=== PATIENT | female | born 1960 | race African-American/Black ===

== ENCOUNTER 2020-10-27 09:15 | Inpatient (IN) | payer MEDICAID ==
[~2020-10-27] VITALS: Ht 152.4 cm; Wt 78.0 kg
[2020-10-27 09:30] VITALS: BP 135/84
--- NOTE | 2020-10-27 09:32 | NUR ---
pt arrives to ER with complaints of blurred vision and left arm discomfort starting Sunday. pt denies history of TIA or stroke in the past but states she is concerned she is having TIA or stroke now starting 2 days ago. pt is AAOX4. Pt states history of HTN. pt is describing pain as a discomfort in left arm.
--- NOTE | 2020-10-27 09:35 | Emergency Room Report ---
History of Present Illness General Chief Complaint: Headache Source: Patient Present Illness HPI Patient is a 60-year-old female presents for increased right-sided weakness and numbness. Associated blurred vision. States that she had prior history of hypertension. Thinks that she may have had a transient ischemic attack. Had been taking carvedilol as well as amlodipine. Reports taking aspirin. Onset of symptoms on Sunday. 2 days prior to arrival reports having headache beginning yesterday at 8 PM. Patient denies any fever or neck stiffness. Prior history of partial thyroidectomy. 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 COVID-19 Screening: Negative COVID-19 Nursing Documentation-H Hx Cardiac Problems: No Hx Hypertension: Yes Hx Pacemaker: No Hx COPD: No Hx Diabetes: No Hx Cancer: No Hx Gastrointestinal Problems: No Hx Dialysis: No History Of Psychiatric Problem: No Hx Neurological Problems: No Hx Cerebrovascular Accident: No Hx Seizures: No Physical Exam Vital Signs Date Time Temp Pulse Resp B/P (MAP) Pulse Ox O2 Delivery O2 Flow Rate FiO2 10/27/20 09:25 98.1 100 18 135/84 (101) 96 Room Air Sp02 EP Interpretation: reviewed, normal General Appearance: normal inspection, well appearing, no apparent distress, alert, GCS 15 Head: atraumatic ENT: normal ENT inspection, hearing grossly normal, normal voice Neck: normal inspection, full range of motion, supple, no bony tend Respiratory: normal inspection, lungs clear, normal breath sounds, no respiratory distress, no retraction, no wheezing Cardiovascular #1: regular rate, rhythm, no edema Gastrointestinal: normal inspection, normal bowel sounds, non tender, soft, no guarding, no hernia Genitourinary: no CVA tenderness Musculoskeletal: normal inspection, back normal, normal range of motion Neurologic: alert, motor strength/tone normal, professional builder III-XII nml as tested, oriented x3, responsive, speech normal, normal gait, normal inspection, sensory deficit - Paresthesias to the right upper extremity and right lower extremity, no focal defects Psychiatric: normal inspection, judgement/insight normal, mood/affect normal Medical Decision Making Diagnostic Impression: Primary Impression: Headache Additional Impression: Multiple lacunar infarcts ER Course Patient presents for increased headache and leg weakness. Differential diagnosis include was not limited to CVA, transient ischemic attack, hypoglycemia, intracranial hemorrhage among others. Because of complexity of patient's case laboratory tests and imaging studies were ordered. His la boratory testing had adequate hemoglobin as well as adequate blood sugar as well as normal blood counts. Patient was given aspirin after imaging studies. Patient was ambulatory without assistance and had normal speech. Dr. Puentes was contacted for inpatient management. And agreed to admit the patient. Labs Test 10/27/20 09:40 10/27/20 10:00 White Blood Count 9.3 K/UL (4.8-10.8) Red Blood Count 4.79 M/UL (4.20-5.40) Hemoglobin 11.9 G/DL (12.0-16.0) Hematocrit 39.6 % (37.0-47.0) Mean Corpuscular Volume 83 FL (80-99) Mean Corpuscular Hemoglobin 24.9 PG (27.0-31.0) Mean Corpuscular Hemoglobin Concent 30.1 G/DL (32.0-36.0) Red Cell Distribution Width 15.1 % (11.6-14.8) Platelet Count 345 K/UL (150-450) Mean Platelet Volume 8.5 FL (6.5-10.1) Neutrophils (%) (Auto) 72.5 % (45.0-75.0) Lymphocytes (%) (Auto) 17.0 % (20.0-45.0) Monocytes (%) (Auto) 8.5 % (1.0-10.0) Eosinophils (%) (Auto) 0.6 % (0.0-3.0) Basophils (%) (Auto) 1.4 % (0.0-2.0) Prothrombin Time 12.0 SEC (9.30-11.50) Prothromb Time International Ratio 1.1 (0.9-1.1) Activated Partial Thromboplast Time 24 SEC (23-33) Sodium Level 143 MMOL/L (136-145) Potassium Level 4.2 MMOL/L (3.5-5.1) Chloride Level 104 MMOL/L (98-107) Carbon Dioxide Level 27 MMOL/L (21-32) Anion Gap 12 mmol/L (5-15) Blood Urea Nitrogen 12 mg/dL (7-18) Creatinine 0.9 MG/DL (0.55-1.30) Estimat Glomerular Filtration Rate > 60 mL/min (>60) Glucose Level 97 MG/DL (74-106) Calcium Level 9.6 MG/DL (8.5-10.1) Total Bilirubin 0.3 MG/DL (0.2-1.0) Aspartate Amino Transf (AST/SGOT) 26 U/L (15-37) Alanine Aminotransferase (ALT/SGPT) 37 U/L (12-78) Alkaline Phosphatase 120 U/L (46-116) Troponin I 0.000 ng/mL (0.000-0.056) Total Protein 7.8 G/DL (6.4-8.2) Albumin 4.0 G/DL (3.4-5.0) Globulin 3.8 g/dL Albumin/Globulin Ratio 1.1 (1.0-2.7) Triglycerides Level 63 MG/DL (30-150) Cholesterol Level 125 MG/DL (< 200) LDL Cholesterol 75 mg/dL (<100) HDL Cholesterol 34 MG/DL (40-60) Cholesterol/HDL Ratio 3.7 (3.3-4.4) Thyroid Stimulating Hormone (TSH) 2.434 uiU/mL (0.358-3.740) POC Whole Blood Glucose 106 MG/DL (74-106) Last Vital Signs Date Time Temp Pulse Resp B/P (MAP) Pulse Ox O2 Delivery O2 Flow Rate FiO2 10/27/20 09:30 98.1 18 135/84 96 Room Air 10/27/20 09:25 100 Status: unchanged Disposition: ADMITTED INPATIENT Condition: Stable Irving Norwood MD Oct 27, 2020 09:35
[2020-10-27] MEDS ORDERED: NEXIUM20 M1 ORAL (09:38)
[2020-10-27] MEDS ORDERED: FOLIC ACID1 MG ORAL (09:38)
[2020-10-27] MEDS ORDERED: VITAMIN D325 MC1 PO (09:38)
[2020-10-27] MEDS ORDERED: SPIRONOLACTONE100 MG ORAL (09:38)
[2020-10-27] MEDS ORDERED: ASPIRIN81 MG ORAL (09:38)
[2020-10-27] MEDS ORDERED: CARVEDILOL12.5 MG ORAL (09:38)
[2020-10-27 10:12] LABS: BASOPHILS % (AUTO) 1.4 % (0.0-2.0); EOSINOPHILS % (AUTO) 0.6 % (0.0-3.0); HEMATOCRIT 39.6 % (37.0-47.0); HEMOGLOBIN 11.9 G/DL (12.0-16.0); MEAN CORPUSCULAR VOLUME 83 FL (80-99); MONOCYTES % (AUTO) 8.5 % (1.0-10.0); NEUTROPHILS % (AUTO) 72.5 % (45.0-75.0); PLATELET COUNT 345 K/UL (150-450); RED BLOOD COUNT 4.79 M/UL (4.20-5.40); RED CELL DISTRIBUTION WIDTH 15.1 % (11.6-14.8); WHITE BLOOD COUNT 9.3 K/UL (4.8-10.8)
[2020-10-27 10:22] LABS: INR 1.1 (0.9-1.1)
[2020-10-27 10:41] LABS: ANION GAP 12 mmol/L (5-15); BLOOD UREA NITROGEN 12 mg/dL (7-18); CALCIUM 9.6 MG/DL (8.5-10.1); CARBON DIOXIDE 27 MMOL/L (21-32); CHLORIDE 104 MMOL/L (98-107); CREATININE 0.9 MG/DL (0.55-1.30); POTASSIUM 4.2 MMOL/L (3.5-5.1); SODIUM 143 MMOL/L (136-145)
[2020-10-27 10:53] LABS: ALANINE AMINOTRANSFERASE 37 U/L (12-78); ALBUMIN/GLOBULIN RATIO 1.1 (1.0-2.7); ALKALINE PHOSPHATASE 120 U/L (46-116); ASPARTATE AMINO TRANSFERASE 26 U/L (15-37); BILIRUBIN,TOTAL 0.3 MG/DL (0.2-1.0); CHOLESTEROL 125 MG/DL (< 200); HDL CHOLESTEROL 34 MG/DL (40-60); TRIGLYCERIDES 63 MG/DL (30-150)
--- NOTE | 2020-10-27 11:23 | Diagnostic Imaging Report ---
Indications: Increasing right-sided weakness and numbness with blurred vision Technique: Spiral acquisitions obtained through the brain. Angled axial and coronal 5 x 5 mm slices were reconstructed. Total dose length product 965 mGycm. CTDI vol(s) 53 mGy. Dose reduction achieved using automated exposure control Comparison: None. Findings: No acute intracranial hemorrhage or edema, mass effect, nor midline shift. Old lacunar infarcts are seen in the bilateral periventricular deep white matter, right greater than left. Otherwise normal uk-white differentiation. There is an old deep white matter infarct in the high left posterior frontal deep white matter. Visualized orbits and sinuses are unremarkable. The mastoids are clear. Impression: Multiple old infarcts Negative for acute intracranial bleed or mass effect The CT scanner at [facility] is accredited by the [employer] and the scans are performed using protocols designed to limit radiation exposure to as low as reasonably achievable to attain images of sufficient resolution adequate for diagnostic evaluation.
[2020-10-27] MEDS ORDERED: Aspirin Baby 81mg ORAL ONE (12:00)
--- NOTE | 2020-10-27 12:15 | NUR ---
pt in NAD, updated on plan of care at this time.
--- NOTE | 2020-10-27 14:41 | NUR ---
report given to nurse in 2 east patient is to be transferd to room 214 -1 via [facility]
[2020-10-27 15:05] VITALS: BP 132/96
[2020-10-27 16:00] VITALS: BP 116/80
--- NOTE | 2020-10-27 16:00 | NUR ---
NURSE NOTES: Received report from LINNEA Byrne from ED. Pt transferred from ED to tele. color television console monitor applied. IV site in LAC 20G SL patent and intact. Denied pain. No signs of distress noted. Side railsx2 up for safety. Right wrist brace for carpal tunnel syndrome noted. Per patient, She went to [facility] last week for right hand weakness and MRI done at the hospital. Will contact Dr. Puentes for admission orders.
[2020-10-27] MEDS ORDERED: Dyna-Hex 2% Top Sol 2oz TOPIC PRN (16:15)
--- NOTE | 2020-10-27 17:52 | Consultation ---
History of Present Illness General Chief Complaint: Headache Present Illness Allergies: Coded Allergies: No Known Allergies (Unverified , 10/27/20) Medication History Scheduled Aspirin* (Aspirin*), 81 MG ORAL DAILY, (Reported) Carvedilol* (Carvedilol*), 12.5 MG ORAL EVERY 12 HOURS, (Reported) Cholecalciferol (Vitamin D3) (Vitamin D3*), 25 MCG PO DAILY, (Reported) Esomeprazole Magnesium (Nexium), 20 MG ORAL DAILY, (Reported) Folic Acid* (Folic Acid*), 1 MG ORAL DAILY, (Reported) Spironolactone* (Spironolactone*), 100 MG ORAL DAILY, (Reported) Patient History Healthcare decision maker N Resuscitation status Advanced Directive on File Physical Exam Last 24 Hour Vital Signs Date Time Temp Pulse Resp B/P (MAP) Pulse Ox O2 Delivery O2 Flow Rate FiO2 10/27/20 16:00 81 10/27/20 15:05 86 18 132/96 100 10/27/20 14:39 98.2 82 18 130/80 98 Room Air 10/27/20 12:14 81 18 100 10/27/20 09:30 98.1 18 135/84 96 Room Air 10/27/20 09:25 98.1 100 18 135/84 (101) 96 Room Air Laboratory Tests Test 10/27/20 09:40 10/27/20 10:00 White Blood Count 9.3 K/UL (4.8-10.8) Red Blood Count 4.79 M/UL (4.20-5.40) Hemoglobin 11.9 G/DL (12.0-16.0) L Hematocrit 39.6 % (37.0-47.0) Mean Corpuscular Volume 83 FL (80-99) Mean Corpuscular Hemoglobin 24.9 PG (27.0-31.0) L Mean Corpuscular Hemoglobin Concent 30.1 G/DL (32.0-36.0) L Red Cell Distribution Width 15.1 % (11.6-14.8) H Platelet Count 345 K/UL (150-450) Mean Platelet Volume 8.5 FL (6.5-10.1) Neutrophils (%) (Auto) 72.5 % (45.0-75.0) Lymphocytes (%) (Auto) 17.0 % (20.0-45.0) L Monocytes (%) (Auto) 8.5 % (1.0-10.0) Eosinophils (%) (Auto) 0.6 % (0.0-3.0) Basophils (%) (Auto) 1.4 % (0.0-2.0) Prothrombin Time 12.0 SEC (9.30-11.50) H Prothromb Time International Ratio 1.1 (0.9-1.1) Activated Partial Thromboplast Time 24 SEC (23-33) Sodium Level 143 MMOL/L (136-145) Potassium Level 4.2 MMOL/L (3.5-5.1) Chloride Level 104 MMOL/L (98-107) Carbon Dioxide Level 27 MMOL/L (21-32) Anion Gap 12 mmol/L (5-15) Blood Urea Nitrogen 12 mg/dL (7-18) Creatinine 0.9 MG/DL (0.55-1.30) Estimat Glomerular Filtration Rate > 60 mL/min (>60) Glucose Level 97 MG/DL (74-106) Calcium Level 9.6 MG/DL (8.5-10.1) Total Bilirubin 0.3 MG/DL (0.2-1.0) Aspartate Amino Transf (AST/SGOT) 26 U/L (15-37) Alanine Aminotransferase (ALT/SGPT) 37 U/L (12-78) Alkaline Phosphatase 120 U/L (46-116) H Troponin I 0.000 ng/mL (0.000-0.056) Total Protein 7.8 G/DL (6.4-8.2) Albumin 4.0 G/DL (3.4-5.0) Globulin 3.8 g/dL Albumin/Globulin Ratio 1.1 (1.0-2.7) Triglycerides Level 63 MG/DL (30-150) Cholesterol Level 125 MG/DL (< 200) LDL Cholesterol 75 mg/dL (<100) HDL Cholesterol 34 MG/DL (40-60) L Cholesterol/HDL Ratio 3.7 (3.3-4.4) Thyroid Stimulating Hormone (TSH) 2.434 uiU/mL (0.358-3.740) POC Whole Blood Glucose 106 MG/DL (74-106) Height (Feet): 5 Weight (Pounds): 172 Medications Current Medications Medications (Trade) Dose Ordered Sig/Casey Route PRN Reason Start Time Stop Time Status Last Admin Dose Admin Aspirin (ASA) 81 mg DAILY ORAL 10/28/20 09:00 12/12/20 08:59 Atorvastatin Calcium (Lipitor) 10 mg BEDTIME ORAL 10/27/20 21:00 01/25/21 20:59 Carvedilol (Coreg) 12.5 mg EVERY 12 HOURS ORAL 10/27/20 21:00 11/26/20 20:59 Chlorhexidine Gluconate (Darlene-Hex 2%) 1 applic PRN PRN TOPIC Radiology Procedure 10/27/20 16:15 01/25/21 16:14 Folic Acid (Folate) 1 mg DAILY ORAL 10/28/20 09:00 11/27/20 08:59 Pantoprazole (Protonix) 40 mg DAILY ORAL 10/28/20 09:00 11/27/20 08:59 Spironolactone (Aldactone) 100 mg DAILY ORAL 10/28/20 09:00 11/27/20 08:59 Brittany Puentes M.D. Oct 27, 2020 17:52
--- NOTE | 2020-10-27 18:02 | History & Physical ---
History of Present Illness General Reason for Hospitalization: Headache Present Illness HPI This is a 60-year-old AA female presents for increased bilateral upper extremity weakness, numbness, and swelling, which is now resolved and Associated blurred vision. States that she had prior history of hypertension, newly diagnosed with stroke last week states she was seen at [facility] Most likely Dr. Carroll's team, she was given crestor and asa since her last admission at [facility]. She also has hx of RA and is on Methotrexate. She complains of morning stiffness and swelling in her hands. She works as a caregiver. Her symptoms have now resolved. CT head revealed Multiple old infarcts, Negative for acute intracranial bleed or mass effect. We were consulted for weakness and ? TIA. PAST MEDICAL HISTORY: Stroke, HLD, hypertension, pre diabetes, RA, Carpel Tunnel PAST SURGICAL HISTORY: Thyroidectomy FAMILY HISTORY: Heart Attack SOCIAL HISTORY: Denies smoking tobacco, no alcohol and no drugs, has several grown children 5 or 6 and works as a caregiver. Allergies: Coded Allergies: No Known Allergies (Unverified , 10/27/20) COVID-19 Screening Contact w/high risk pt: No Experienced COVID-19 symptoms?: No Medication History Scheduled Aspirin* (Aspirin*), 81 MG ORAL DAILY, (Reported) Carvedilol* (Carvedilol*), 12.5 MG ORAL EVERY 12 HOURS, (Reported) Cholecalciferol (Vitamin D3) (Vitamin D3*), 25 MCG PO DAILY, (Reported) Esomeprazole Magnesium (Nexium), 20 MG ORAL DAILY, (Reported) Folic Acid* (Folic Acid*), 1 MG ORAL DAILY, (Reported) Spironolactone* (Spironolactone*), 100 MG ORAL DAILY, (Reported) Patient History Healthcare decision maker N Resuscitation status Advanced Directive on File Review of Systems Review of Symptoms General ROS: no weight loss or fever Psychological ROS: no depression or mood changes, no memory loss Ophthalmic ROS: no visual changes or eye irritation ENT ROS: no nasal congestion, hearing loss, dizziness Allergy and Immunology ROS: no allergic symptoms or urticaria Hematological and Lymphatic ROS: no swollen glands, unusual bleeding or bruising Endocrine ROS: no polyuria, polydipsia, weight changes, temperature intolerance Respiratory ROS: no cough, shortness of breath, or wheezing Cardiovascular ROS: no chest pain or dyspnea on exertion Gastrointestinal ROS: denies abdominal pain, bright red blood in stool. Musculoskeletal ROS: no myalgias or arthralgias Neurological ROS: no TIA or stroke symptoms Dermatological ROS: no new or changing skin lesions, rashes or pruritis Physical Exam Physical Exam General appearance: alert, cooperative, no distress, appears stated age Head: Normocephalic, without obvious abnormality, atraumatic Eyes: conjunctivae/corneas clear. PERRL, EOM's intact. Fundi benign Throat: Lips, mucosa, and tongue normal. Teeth and gums normal Neck: supple, symmetrical, trachea midline, no adenopathy, thyroid: not enlarged, symmetric, no tenderness/mass/nodules, no carotid bruit and no JVD Lungs: clear to auscultation bilaterally Heart: regular rate and rhythm, S1, S2 normal, no murmur, click, rub or gallop Abdomen: soft, non-tender. Bowel sounds normal. No masses, no organomegaly Extremities: extremities normal, atraumatic, no cyanosis or edema Pulses: 2+ and symmetric Skin: Skin color, texture, turgor normal. No rashes or lesions Neurologic: Grossly normal Last 24 Hour Vital Signs Date Time Temp Pulse Resp B/P (MAP) Pulse Ox O2 Delivery O2 Flow Rate FiO2 10/27/20 16:09 Room Air 10/27/20 16:00 81 10/27/20 15:05 86 18 132/96 100 10/27/20 14:39 98.2 82 18 130/80 98 Room Air 10/27/20 12:14 81 18 100 10/27/20 09:30 98.1 18 135/84 96 Room Air 10/27/20 09:25 98.1 100 18 135/84 (101) 96 Room Air Laboratory Tests Test 10/27/20 09:40 10/27/20 10:00 White Blood Count 9.3 K/UL (4.8-10.8) Red Blood Count 4.79 M/UL (4.20-5.40) Hemoglobin 11.9 G/DL (12.0-16.0) L Hematocrit 39.6 % (37.0-47.0) Mean Corpuscular Volume 83 FL (80-99) Mean Corpuscular Hemoglobin 24.9 PG (27.0-31.0) L Mean Corpuscular Hemoglobin Concent 30.1 G/DL (32.0-36.0) L Red Cell Distribution Width 15.1 % (11.6-14.8) H Platelet Count 345 K/UL (150-450) Mean Platelet Volume 8.5 FL (6.5-10.1) Neutrophils (%) (Auto) 72.5 % (45.0-75.0) Lymphocytes (%) (Auto) 17.0 % (20.0-45.0) L Monocytes (%) (Auto) 8.5 % (1.0-10.0) Eosinophils (%) (Auto) 0.6 % (0.0-3.0) Basophils (%) (Auto) 1.4 % (0.0-2.0) Prothrombin Time 12.0 SEC (9.30-11.50) H Prothromb Time International Ratio 1.1 (0.9-1.1) Activated Partial Thromboplast Time 24 SEC (23-33) Sodium Level 143 MMOL/L (136-145) Potassium Level 4.2 MMOL/L (3.5-5.1) Chloride Level 104 MMOL/L (98-107) Carbon Dioxide Level 27 MMOL/L (21-32) Anion Gap 12 mmol/L (5-15) Blood Urea Nitrogen 12 mg/dL (7-18) Creatinine 0.9 MG/DL (0.55-1.30) Estimat Glomerular Filtration Rate > 60 mL/min (>60) Glucose Level 97 MG/DL (74-106) Calcium Level 9.6 MG/DL (8.5-10.1) Total Bilirubin 0.3 MG/DL (0.2-1.0) Aspartate Amino Transf (AST/SGOT) 26 U/L (15-37) Alanine Aminotransferase (ALT/SGPT) 37 U/L (12-78) Alkaline Phosphatase 120 U/L (46-116) H Troponin I 0.000 ng/mL (0.000-0.056) Total Protein 7.8 G/DL (6.4-8.2) Albumin 4.0 G/DL (3.4-5.0) Globulin 3.8 g/dL Albumin/Globulin Ratio 1.1 (1.0-2.7) Triglycerides Level 63 MG/DL (30-150) Cholesterol Level 125 MG/DL (< 200) LDL Cholesterol 75 mg/dL (<100) HDL Cholesterol 34 MG/DL (40-60) L Cholesterol/HDL Ratio 3.7 (3.3-4.4) Thyroid Stimulating Hormone (TSH) 2.434 uiU/mL (0.358-3.740) POC Whole Blood Glucose 106 MG/DL (74-106) Height (Feet): 5 Height (Inches): 0.00 Weight (Pounds): 172 Medications Current Medications Medications (Trade) Dose Ordered Sig/Casey Route PRN Reason Start Time Stop Time Status Last Admin Dose Admin Aspirin (ASA) 81 mg DAILY ORAL 10/28/20 09:00 12/12/20 08:59 Atorvastatin Calcium (Lipitor) 10 mg BEDTIME ORAL 10/27/20 21:00 01/25/21 20:59 Carvedilol (Coreg) 12.5 mg EVERY 12 HOURS ORAL 10/27/20 21:00 11/26/20 20:59 Chlorhexidine Gluconate (Darlene-Hex 2%) 1 applic PRN PRN TOPIC Radiology Procedure 10/27/20 16:15 01/25/21 16:14 Folic Acid (Folate) 1 mg DAILY ORAL 10/28/20 09:00 11/27/20 08:59 Pantoprazole (Protonix) 40 mg DAILY ORAL 10/28/20 09:00 11/27/20 08:59 Spironolactone (Aldactone) 100 mg DAILY ORAL 10/28/20 09:00 11/27/20 08:59 Assessment/Plan Diagnosis [place] I: # Recent Stroke #HLD # hypertension #pre diabetes # RA #Carpel Tunnel - admit to tele - brain MRI - neuro eval - echo - carotid US - asa - statin - PT - monitor labs [facility] Hospital declaration I spent 70 minutes on this patient's case, and 36 minutes was dedicated to counseling and/or care coordination. MIPS ([employer]-based Incentive Payment System) Applicable CPT: 77234, 82636 CHECK ALL THAT ARE MET: Measure #5 (CHF): All ages. Prescribe JEN/ARB upon discharge for patients with left ventricular systolic dysfunction. If not, the reason is clearly documented in the medical chart. Measure #8 (CHF): All ages. Prescribe a beta enma upon discharge for patients with left ventricular systolic dysfunction. If not, the reason is clearly documented in the medical chart. Measure #47 Advance care plan or surrogate decision maker documented in the medical record. Measure #130 The provider has documented, updated, or reviewed the patients current medication list and has documented it in the patients note. Measure #374 (All): Send report to referring provider. Measure #407(Sepsis due to MSSA bacteremia): Age 18+ Patient treated with a beta-lactam antibiotic (Nafcillin, Oxacillin or Cefazolin) as definitive therapy. MEDICAL COMPLEXITY High complexity medical decision making (need 2/3 categories) Problem - need 4 points Acute/new problem with new plan for workup (4 points, 1 max) Acute/new problem without additional workup (3 points, 1 max) Unstable chronic problem actively being managed (2 point each, 2 max) Stable chronic problem actively being managed (1 point each, 2 max) Self-limited/transient process (constipation, muscle ache, etc) (1 point each, 2 max) Data - need 4 points Reviewed labs/imaging studies (1 points, 2 max) Independent review of imaging (EKG, xrays, etc) (2 points, 2 max) Discussed case with consult/other MD/RN (2 points, 2 max) High Risk - qualify if have one of the following: Severe exacerbation of acute problem, acute mental status change, IV narco tics, monitoring drug levels (vancomycin, INR, tacrolimus etc) Brittany Puentes M.D. Oct 27, 2020 18:01
--- NOTE | 2020-10-27 19:34 | NUR ---
NURSE HAND-OFF REPORT: Important Events on Shift: admission Patient Status: stable Diet: cardiac Pending Orders: n/a Pending Results/Labs: 2D echo Pending MD notification:[place] [facility] [place] Vital Signs: Temperature 97.7 , Pulse 84 , B/P 116 /80 , Respiratory Rate 18 , O2 SAT 100 , Room Air, O2 Flow Rate . Vital Sign Comment: stable EKG Rhythm: Sinus Rhythm Rhythm change?: N MD Notified?: - MD Response: Latest Carmichael Fall Score: 15 Fall Risk: Low Risk Safety Measures: Call light Within Reach, Bed Alarm , Side Rails Side Rails x2, Bed position Low and Locked. Fall Precautions: Patient Fall Education Report given to LINNEA Fitzpatrick.
[2020-10-27 20:00] VITALS: BP 119/66
[2020-10-27] MEDS ORDERED: Atorvastatin 20mg tab ORAL SCH (21:00)
[2020-10-27] MEDS: Carvedilol 12.5mg tab ORAL SCH (21:28)
--- NOTE | 2020-10-27 22:06 | Consultation ---
History of Present Illness General Date patient seen: Oct 27, 2020 Reason for Hospitalization: Headache Present Illness HPI Patient is a 60-year-old female presents for increased right-sided weakness and numbness. Associated blurred vision. States that she had prior history of hype rtension. Thinks that she may have had a transient ischemic attack. Had been taking carvedilol as well as amlodipine. Reports taking aspirin. Onset of symptoms on Sunday. 2 days prior to arrival reports having headache beginning yesterday at 8 PM. Patient denies any fever or neck stiffness. Prior history of partial thyroidectomy. On admission noted to have elevated alkaline phosphate surgical divine assist with care patient seen, patient by, chart reviewed. No nausea vomiting fever chills. Was not down for significant time. Allergies: Coded Allergies: No Known Allergies (Unverified , 10/27/20) COVID-19 Screening Contact w/high risk pt: No Experienced COVID-19 symptoms?: No Medication History Scheduled Aspirin* (Aspirin*), 81 MG ORAL DAILY, (Reported) Carvedilol* (Carvedilol*), 12.5 MG ORAL EVERY 12 HOURS, (Reported) Cholecalciferol (Vitamin D3) (Vitamin D3*), 25 MCG PO DAILY, (Reported) Esomeprazole Magnesium (Nexium), 20 MG ORAL DAILY, (Reported) Folic Acid* (Folic Acid*), 1 MG ORAL DAILY, (Reported) Spironolactone* (Spironolactone*), 100 MG ORAL DAILY, (Reported) Patient History History Provided By: Patient, Medical Record, PMD Healthcare decision maker N Resuscitation status Advanced Directive on File Past Medical/Surgical History Past Medical/Surgical History: (1) Headache (2) Multiple lacunar infarcts (3) TIA (transient ischemic attack) Review of Systems Review of Symptoms General ROS: no weight loss or fever Psychological ROS: no depression or mood changes, no memory loss Ophthalmic ROS: no visual changes or eye irritation ENT ROS: no nasal congestion, hearing loss, dizziness Allergy and Immunology ROS: no allergic symptoms or urticaria Hematological and Lymphatic ROS: no swollen glands, unusual bleeding or bruising Endocrine ROS: no polyuria, polydipsia, weight changes, temperature intolerance Respiratory ROS: no cough, shortness of breath, or wheezing Cardiovascular ROS: no chest pain or dyspnea on exertion Gastrointestinal ROS: denies abdominal pain, bright red blood in stool. Musculoskeletal ROS: no myalgias or arthralgias Neurological ROS: no TIA or stroke symptoms Dermatological ROS: no new or changing skin lesions, rashes or pruritis Physical Exam Physical Exam General appearance: alert, cooperative, no distress, appears stated age Head: Normocephalic, without obvious abnormality, atraumatic Eyes: conjunctivae/corneas clear. PERRL, EOM's intact. Fundi benign Throat: Lips, mucosa, and tongue normal. Teeth and gums normal Neck: supple, symmetrical, trachea midline, no adenopathy, thyroid: not enlarged, symmetric, no tenderness/mass/nodules, no carotid bruit and no JVD Lungs: clear to auscultation bilaterally Heart: regular rate and rhythm, S1, S2 normal, no murmur, click, rub or gallop Abdomen: soft, non-tender. Bowel sounds normal. No masses, no organomegaly Extremities: extremities normal, atraumatic, no cyanosis or edema Pulses: 2+ and symmetric Skin: Skin color, texture, turgor normal. No rashes or lesions Neurologic: Grossly normal Last 24 Hour Vital Signs Date Time Temp Pulse Resp B/P (MAP) Pulse Ox O2 Delivery O2 Flow Rate FiO2 10/27/20 21:28 77 119/66 10/27/20 20:00 97.7 77 18 119/66 (83) 98 10/27/20 16:09 Room Air 10/27/20 16:09 Room Air 10/27/20 16:00 81 10/27/20 16:00 97.7 84 18 116/80 (92) 100 10/27/20 15:05 86 18 132/96 100 10/27/20 14:39 98.2 82 18 130/80 98 Room Air 10/27/20 12:14 81 18 100 10/27/20 09:30 98.1 18 135/84 96 Room Air 10/27/20 09:25 98.1 100 18 135/84 (101) 96 Room Air Laboratory Tests Test 10/27/20 09:40 10/27/20 10:00 White Blood Count 9.3 K/UL (4.8-10.8) Red Blood Count 4.79 M/UL (4.20-5.40) Hemoglobin 11.9 G/DL (12.0-16.0) L Hematocrit 39.6 % (37.0-47.0) Mean Corpuscular Volume 83 FL (80-99) Mean Corpuscular Hemoglobin 24.9 PG (27.0-31.0) L Mean Corpuscular Hemoglobin Concent 30.1 G/DL (32.0-36.0) L Red Cell Distribution Width 15.1 % (11.6-14.8) H Platelet Count 345 K/UL (150-450) Mean Platelet Volume 8.5 FL (6.5-10.1) Neutrophils (%) (Auto) 72.5 % (45.0-75.0) Lymphocytes (%) (Auto) 17.0 % (20.0-45.0) L Monocytes (%) (Auto) 8.5 % (1.0-10.0) Eosinophils (%) (Auto) 0.6 % (0.0-3.0) Basophils (%) (Auto) 1.4 % (0.0-2.0) Prothrombin Time 12.0 SEC (9.30-11.50) H Prothromb Time International Ratio 1.1 (0.9-1.1) Activated Partial Thromboplast Time 24 SEC (23-33) Sodium Level 143 MMOL/L (136-145) Potassium Level 4.2 MMOL/L (3.5-5.1) Chloride Level 104 MMOL/L (98-107) Carbon Dioxide Level 27 MMOL/L (21-32) Anion Gap 12 mmol/L (5-15) Blood Urea Nitrogen 12 mg/dL (7-18) Creatinine 0.9 MG/DL (0.55-1.30) Estimat Glomerular Filtration Rate > 60 mL/min (>60) Glucose Level 97 MG/DL (74-106) Calcium Level 9.6 MG/DL (8.5-10.1) Total Bilirubin 0.3 MG/DL (0.2-1.0) Aspartate Amino Transf (AST/SGOT) 26 U/L (15-37) Alanine Aminotransferase (ALT/SGPT) 37 U/L (12-78) Alkaline Phosphatase 120 U/L (46-116) H Troponin I 0.000 ng/mL (0.000-0.056) Total Protein 7.8 G/DL (6.4-8.2) Albumin 4.0 G/DL (3.4-5.0) Globulin 3.8 g/dL Albumin/Globulin Ratio 1.1 (1.0-2.7) Triglycerides Level 63 MG/DL (30-150) Cholesterol Level 125 MG/DL (< 200) LDL Cholesterol 75 mg/dL (<100) HDL Cholesterol 34 MG/DL (40-60) L Cholesterol/HDL Ratio 3.7 (3.3-4.4) Thyroid Stimulating Hormone (TSH) 2.434 uiU/mL (0.358-3.740) POC Whole Blood Glucose 106 MG/DL (74-106) Height (Feet): 5 Height (Inches): 0.00 Weight (Pounds): 172 Medications Current Medications Medications (Trade) Dose Ordered Sig/Casey Route PRN Reason Start Time Stop Time Status Last Admin Dose Admin Aspirin (ASA) 81 mg DAILY ORAL 10/28/20 09:00 12/12/20 08:59 Atorvastatin Calcium (Lipitor) 10 mg BEDTIME ORAL 10/27/20 21:00 01/25/21 20:59 10/27/20 21:29 Carvedilol (Coreg) 12.5 mg EVERY 12 HOURS ORAL 10/27/20 21:00 11/26/20 20:59 10/27/20 21:28 Chlorhexidine Gluconate (Darlene-Hex 2%) 1 applic PRN PRN TOPIC Radiology Procedure 10/27/20 16:15 01/25/21 16:14 Folic Acid (Folate) 1 mg DAILY ORAL 10/28/20 09:00 11/27/20 08:59 Pantoprazole (Protonix) 40 mg DAILY ORAL 10/28/20 09:00 11/27/20 08:59 Spironolactone (Aldactone) 100 mg DAILY ORAL 10/28/20 09:00 11/27/20 08:59 Assessment/Plan Problem List: (1) TIA (transient ischemic attack) ICD Codes: G45.9 - Transient cerebral ischemic attack, unspecified SNOMED: 698025343 (2) Headache Assessment & Plan: as per neuro ICD Codes: R51.9 - Headache, unspecified SNOMED: 49150776 (3) Multiple lacunar infarcts ICD Codes: I63.81 - Other cerebral infarction due to occlusion or stenosis of small artery SNOMED: 603484920 (4) Elevated alkaline phosphatase level Assessment & Plan: Possible TIA not down LOC no pending neuro input MRI CT noted alkaline phosphatase elevation unlikely liver related unlikely from being down no acute intervention necessary at this time okay for diet okay for activity as tolerated once gait ensured. PT OT trend labs we will follow the recommendations hold on further imaging unlikely biliary thank you ICD Codes: R74.8 - Abnormal levels of other serum enzymes SNOMED: 309809092 Josafat Chu Oct 27, 2020 22:06
[2020-10-28] VITALS: BP 100/50
[2020-10-28 04:00] VITALS: BP 119/66
--- NOTE | 2020-10-28 07:10 | NUR ---
NURSE NOTES: received patient report from stormy hernandez rn. patient is on bed awake, not in acute distress. no acute events reported last time. scds for dvt prophylaxis, ambulatory, steady. NSR on the monitor. bed is low and locked for safety. will follow plan of care.
[2020-10-28 07:19] LABS: EOSINOPHILS % (AUTO) 1.9 % (0.0-3.0); HEMATOCRIT 34.6 % (37.0-47.0); HEMOGLOBIN 10.8 G/DL (12.0-16.0); LYMPHOCYTES % (AUTO) 29.4 % (20.0-45.0); MEAN CORPUSCULAR VOLUME 82 FL (80-99); MONOCYTES % (AUTO) 9.5 % (1.0-10.0); NEUTROPHILS % (AUTO) 58.2 % (45.0-75.0); PLATELET COUNT 319 K/UL (150-450); RED CELL DISTRIBUTION WIDTH 15.2 % (11.6-14.8); WHITE BLOOD COUNT 7.8 K/UL (4.8-10.8)
[2020-10-28 07:41] LABS: AMYLASE 55 U/L (25-115)
[2020-10-28 07:50] LABS: ANION GAP 9 mmol/L (5-15); BLOOD UREA NITROGEN 18 mg/dL (7-18); CARBON DIOXIDE 28 MMOL/L (21-32); CHLORIDE 104 MMOL/L (98-107); CHOLESTEROL 100 MG/DL (< 200); CREATININE 0.9 MG/DL (0.55-1.30); HDL CHOLESTEROL 28 MG/DL (40-60); PHOSPHORUS 4.1 MG/DL (2.5-4.9); POTASSIUM 4.1 MMOL/L (3.5-5.1); SODIUM 141 MMOL/L (136-145); TRIGLYCERIDES 51 MG/DL (30-150)
[2020-10-28 08:00] VITALS: BP 128/86
[2020-10-28] MEDS: Spironolactone 25mg tab ORAL SCH (08:26)
[2020-10-28] MEDS: Aspirin Baby 81mg ORAL SCH (08:26)
[2020-10-28] MEDS: Carvedilol 12.5mg tab ORAL SCH ×2 (08:26→21:53)
--- NOTE | 2020-10-28 10:07 | Consultation ---
Consult Note Consult Note NEUROLOGY CONSULTATION DATE OF CONSULTATION: 10/28/2020 AC PINA: Covering Dr. Norton REASON FOR REFERRAL: Weakness, history of stroke HPI: This is a 60-year-old AA female presents for increased bilateral upper extremity weakness, numbness, and swelling, which is now resolved and Associated blurred vision. States that she had prior history of hypertension, newly diagnosed with stroke last week states she was seen at [facility] Most likely Dr. Carroll's team, she was given crestor and asa since her last admission at [facility]. She also has hx of RA and is on Methotrexate. She complains of morning stiffness and swelling in her hands. She works as a caregiver. Her symptoms have now resolved. CT head revealed Multiple old infarcts, Negative for acute intracranial bleed or mass effect. We were consulted for weakness and ? TIA. PAST MEDICAL HISTORY: Stroke, HLD, hypertension, pre diabetes, RA, Carpel Tunnel PAST SURGICAL HISTORY: Thyroidectomy FAMILY HISTORY: Heart Attack SOCIAL HISTORY: Denies smoking tobacco, no alcohol and no drugs, has several jai wn children 5 or 6 and works as a caregiver. ROS 14 point system done Physical Exam General: Resting in bed. Awake, Alert and Oriented x4 Neuro: has insight to situation, comprehension intact, language parameters intact. Cranial nerves II-XII are tested. PERRLA, no nystagmus with gaze. No facial asymmetry no facial droop. Tongue is midline Hearing intact. Motor: No involuntary movement Right upper extremity strength 3/5 Left upper extremity strength 4/5, Bilateral lower extremity strength 4/5 Gait not tested at this time. Corrdination intact and Sensation intact to light touch and pinprick throughout and equal bilaterally in all extremities. Coordination normal. Lab Reviewed IMAGING: Reviewed CT Head Multiple old infarcts, Negative for acute intracranial bleed or mass effect. Assessment and Rec's: 1. History of Stroke --> no deficits exam is non focal. will review records from [facility] and update with further rec's --> continue statin and asa 2. Doubt TIA --> more weakness and edema complaint by patient rather than numbness --> CT head shows old multiple infarcts 3. Hypertension --> continue htn meds 4. pre diabetes 5. RA 6. Carpel Tunnel Thank You for allowing us to participate in patient's care, plan of care was discussed with Dr. Dexter Carroll. -- Yessi Mahmood NP Oct 28, 2020 10:07
--- NOTE | 2020-10-28 10:10 | NUR ---
PT EVALUATION NOTE Patient seen for initial evaluation and treatment initiated. Patient presents with impaired balance and coordination which affects patient's ability to perform mobility skills safely. Patient requires supevision for transfers and SBA for ambulation without assistive device. Patient c/o min dizziness and blurred vision while ambulating, slightly unsteady however no loss of balance. Patient demonstrates impaired coordination RUE and reports RUE and RLE feels "heavy. Patient will benefit from skilled inpatient PT intervention to improve balance, level of functional mobility and safety. Recommend discharge home once medically cleared by MD with outpatient PT and OT follow-up. No DME needs identified at this time. Addendum: 10/28/20 at 1237 by REBA ESTRADA PT Amended: Links added.
[2020-10-28 12:00] VITALS: BP 118/67
--- NOTE | 2020-10-28 12:08 | NUR ---
INSURANCE [employer]INICALS FAXED TO [facility] #[phone] fax# [phone]
--- NOTE | 2020-10-28 12:14 | Internal Med Progress Note ---
Subjective Physician Name Brittany Puentes Attending Physician Brittany Puentes M.D. Current Medications Medications (Trade) Dose Ordered Sig/Casey Route PRN Reason Start Time Stop Time Status Last Admin Dose Admin Aspirin (ASA) 81 mg DAILY ORAL 10/28/20 09:00 12/12/20 08:59 10/28/20 08:26 Atorvastatin Calcium (Lipitor) 10 mg BEDTIME ORAL 10/27/20 21:00 01/25/21 20:59 10/27/20 21:29 Carvedilol (Coreg) 12.5 mg EVERY 12 HOURS ORAL 10/27/20 21:00 11/26/20 20:59 10/28/20 08:26 Chlorhexidine Gluconate (Darlene-Hex 2%) 1 applic PRN PRN TOPIC Radiology Procedure 10/27/20 16:15 01/25/21 16:14 Folic Acid (Folate) 1 mg DAILY ORAL 10/28/20 09:00 11/27/20 08:59 10/28/20 08:26 Pantoprazole (Protonix) 40 mg DAILY ORAL 10/28/20 09:00 11/27/20 08:59 10/28/20 08:25 Spironolactone (Aldactone) 100 mg DAILY ORAL 10/28/20 09:00 11/27/20 08:59 10/28/20 08:26 Allergies: Coded Allergies: No Known Allergies (Unverified , 10/27/20) ROS Limited/Unobtainable: No Constitutional: Reports: weakness HEENT: Denies: no symptoms, eye pain, blurred vision, tearing, double vision, ear pain, ear discharge, nose pain, nose congestion, throat pain, throat swelling, mouth pain, mouth swelling, other Respiratory: Denies: no symptoms, cough, orthopnea, shortness of breath, SOB with excertion, SOB at rest, sputum, stridor, wheezing, other Gastrointestinal/Abdominal: Denies: no symptoms, abdomen distended, abdominal pain, black stools, tarry stools, blood in stool, constipated, diarrhea, difficulty swallowing, nausea, poor appetite, poor fluid intake, rectal bleeding, vomiting, other Genitourinary: Denies: no symptoms, burning, discharge, frequency, flank pain, hematuria, incontinence, pain, urgency, other Neurologic/Psychiatric: Denies: no symptoms, anxiety, depressed, emotional problems, headache, numbness, paresthesia, pre-existing deficit, seizure, tingling, tremors, weakness, other Objective Last Vital Signs Date Time Temp Pulse Resp B/P (MAP) Pulse Ox O2 Delivery O2 Flow Rate FiO2 10/28/20 12:00 97.7 70 17 118/67 (84) 100 10/28/20 09:00 Room Air General Appearance: no apparent distress, alert EENT: PERRL/EOMI, normal ENT inspection Neck: non-tender, normal alignment Cardiovascular: normal peripheral pulses, normal rate, regular rhythm Respiratory/Chest: chest wall non-tender, lungs clear Abdomen: normal bowel sounds, non tender Neurologic: alert, oriented x 3 Laboratory Tests Test 10/28/20 06:40 White Blood Count 7.8 K/UL (4.8-10.8) Red Blood Count 4.20 M/UL (4.20-5.40) Hemoglobin 10.8 G/DL (12.0-16.0) L Hematocrit 34.6 % (37.0-47.0) L Mean Corpuscular Volume 82 FL (80-99) Mean Corpuscular Hemoglobin 25.7 PG (27.0-31.0) L Mean Corpuscular Hemoglobin Concent 31.3 G/DL (32.0-36.0) L Red Cell Distribution Width 15.2 % (11.6-14.8) H Platelet Count 319 K/UL (150-450) Mean Platelet Volume 8.5 FL (6.5-10.1) Neutrophils (%) (Auto) 58.2 % (45.0-75.0) Lymphocytes (%) (Auto) 29.4 % (20.0-45.0) Monocytes (%) (Auto) 9.5 % (1.0-10.0) Eosinophils (%) (Auto) 1.9 % (0.0-3.0) Basophils (%) (Auto) 1.0 % (0.0-2.0) Sodium Level 141 MMOL/L (136-145) Potassium Level 4.1 MMOL/L (3.5-5.1) Chloride Level 104 MMOL/L (98-107) Carbon Dioxide Level 28 MMOL/L (21-32) Anion Gap 9 mmol/L (5-15) Blood Urea Nitrogen 18 mg/dL (7-18) Creatinine 0.9 MG/DL (0.55-1.30) Estimat Glomerular Filtration Rate > 60 mL/min (>60) Glucose Level 100 MG/DL (74-106) Hemoglobin A1c 6.1 % (4.3-6.0) H Calcium Level 9.0 MG/DL (8.5-10.1) Phosphorus Level 4.1 MG/DL (2.5-4.9) Magnesium Level 1.8 MG/DL (1.8-2.4) Triglycerides Level 51 MG/DL (30-150) Cholesterol Level 100 MG/DL (< 200) LDL Cholesterol 62 mg/dL (<100) HDL Cholesterol 28 MG/DL (40-60) L Cholesterol/HDL Ratio 3.6 (3.3-4.4) Amylase Level 55 U/L (25-115) Lipase 156 U/L (73-393) Thyroid Stimulating Hormone (TSH) 1.641 uiU/mL (0.358-3.740) Intake and Output 10/27/20 10/28/20 19:00 07:00 Intake Total 240 ml 300 ml Balance 240 ml 300 ml Intake Oral 240 ml 300 ml # Voids 1 1 # Bowel Movements 1 Assessment/Plan Assessment/Plan # Recent Stroke #HLD # hypertension #pre diabetes # RA #Carpel Tunnel - admit to tele - brain MRI - neuro eval - echo - carotid US - asa - statin - PT - monitor labs Brittany Puentes M.D. Oct 28, 2020 12:14
--- NOTE | 2020-10-28 12:35 | Surgery Progress Note ---
Surgery Progress Note Subjective Symptoms: improved, tolerating diet Objective Last 24 Hour Vital Signs Date Time Temp Pulse Resp B/P (MAP) Pulse Ox O2 Delivery O2 Flow Rate FiO2 10/28/20 12:00 97.7 70 17 118/67 (84) 100 10/28/20 11:40 66 10/28/20 09:00 Room Air 10/28/20 08:26 78 128/86 10/28/20 08:00 96.6 78 18 128/86 (100) 97 10/28/20 08:00 76 10/28/20 04:00 97.5 74 20 119/66 (83) 98 10/28/20 04:00 76 10/28/20 00:00 75 10/28/20 00:00 97.7 77 20 100/50 (67) 98 10/27/20 21:28 77 119/66 10/27/20 21:00 Room Air 10/27/20 20:00 97.7 77 18 119/66 (83) 98 10/27/20 16:09 Room Air 10/27/20 16:09 Room Air 10/27/20 16:00 81 10/27/20 16:00 97.7 84 18 116/80 (92) 100 10/27/20 15:05 86 18 132/96 100 10/27/20 14:39 98.2 82 18 130/80 98 Room Air I&O Intake and Output 10/27/20 10/28/20 19:00 07:00 Intake Total 240 ml 300 ml Balance 240 ml 300 ml Intake Oral 240 ml 300 ml # Voids 1 1 # Bowel Movements 1 Cardiovascular: RSR Respiratory: decreased breath sounds Abdomen: soft, flat, non-tender, present bowel sounds, non-distended Extremities: no edema, no tenderness, no cyanosis Laboratory Tests Test 10/28/20 06:40 White Blood Count 7.8 K/UL (4.8-10.8) Red Blood Count 4.20 M/UL (4.20-5.40) Hemoglobin 10.8 G/DL (12.0-16.0) L Hematocrit 34.6 % (37.0-47.0) L Mean Corpuscular Volume 82 FL (80-99) Mean Corpuscular Hemoglobin 25.7 PG (27.0-31.0) L Mean Corpuscular Hemoglobin Concent 31.3 G/DL (32.0-36.0) L Red Cell Distribution Width 15.2 % (11.6-14.8) H Platelet Count 319 K/UL (150-450) Mean Platelet Volume 8.5 FL (6.5-10.1) Neutrophils (%) (Auto) 58.2 % (45.0-75.0) Lymphocytes (%) (Auto) 29.4 % (20.0-45.0) Monocytes (%) (Auto) 9.5 % (1.0-10.0) Eosinophils (%) (Auto) 1.9 % (0.0-3.0) Basophils (%) (Auto) 1.0 % (0.0-2.0) Sodium Level 141 MMOL/L (136-145) Potassium Level 4.1 MMOL/L (3.5-5.1) Chloride Level 104 MMOL/L (98-107) Carbon Dioxide Level 28 MMOL/L (21-32) Anion Gap 9 mmol/L (5-15) Blood Urea Nitrogen 18 mg/dL (7-18) Creatinine 0.9 MG/DL (0.55-1.30) Estimat Glomerular Filtration Rate > 60 mL/min (>60) Glucose Level 100 MG/DL (74-106) Hemoglobin A1c 6.1 % (4.3-6.0) H Calcium Level 9.0 MG/DL (8.5-10.1) Phosphorus Level 4.1 MG/DL (2.5-4.9) Magnesium Level 1.8 MG/DL (1.8-2.4) Triglycerides Level 51 MG/DL (30-150) Cholesterol Level 100 MG/DL (< 200) LDL Cholesterol 62 mg/dL (<100) HDL Cholesterol 28 MG/DL (40-60) L Cholesterol/HDL Ratio 3.6 (3.3-4.4) Amylase Level 55 U/L (25-115) Lipase 156 U/L (73-393) Thyroid Stimulating Hormone (TSH) 1.641 uiU/mL (0.358-3.740) Plan Problems: (1) TIA (transient ischemic attack) (2) Headache Assessment & Plan: as per neuro (3) Multiple lacunar infarcts (4) Elevated alkaline phosphatase level Assessment & Plan: Possible TIA not down LOC no pending neuro input MRI CT noted alkaline phosphatase elevation unlikely liver related unlikely from being down no acute intervention necessary at this time okay for diet okay for activity as tolerated once gait ensured. PT OT trend labs we will follow the recommendations hold on further imaging unlikely biliary thank you labs improved diet as tolerated neuro input Josafat Chu Oct 28, 2020 12:35
[2020-10-28] MEDS ORDERED: Albuterol/Ipratropium 3ml neb HHN PRN (13:30)
[2020-10-28 16:00] VITALS: BP 117/67
--- NOTE | 2020-10-28 16:22 | Cardiac Electrophysiology PN ---
Subjective Subjective [id number] Objective Last 24 Hour Vital Signs Date Time Temp Pulse Resp B/P (MAP) Pulse Ox O2 Delivery O2 Flow Rate FiO2 10/28/20 12:00 97.7 70 17 118/67 (84) 100 10/28/20 11:40 66 10/28/20 09:00 Room Air 10/28/20 08:26 78 128/86 10/28/20 08:00 96.6 78 18 128/86 (100) 97 10/28/20 08:00 76 10/28/20 04:00 97.5 74 20 119/66 (83) 98 10/28/20 04:00 76 10/28/20 00:00 75 10/28/20 00:00 97.7 77 20 100/50 (67) 98 10/27/20 21:28 77 119/66 10/27/20 21:00 Room Air 10/27/20 20:00 97.7 77 18 119/66 (83) 98 Intake and Output 10/27/20 10/28/20 19:00 07:00 Intake Total 240 ml 300 ml Balance 240 ml 300 ml Intake Oral 240 ml 300 ml # Voids 1 1 # Bowel Movements 1 Laboratory Tests Test 10/28/20 06:40 White Blood Count 7.8 K/UL (4.8-10.8) Red Blood Count 4.20 M/UL (4.20-5.40) Hemoglobin 10.8 G/DL (12.0-16.0) L Hematocrit 34.6 % (37.0-47.0) L Mean Corpuscular Volume 82 FL (80-99) Mean Corpuscular Hemoglobin 25.7 PG (27.0-31.0) L Mean Corpuscular Hemoglobin Concent 31.3 G/DL (32.0-36.0) L Red Cell Distribution Width 15.2 % (11.6-14.8) H Platelet Count 319 K/UL (150-450) Mean Platelet Volume 8.5 FL (6.5-10.1) Neutrophils (%) (Auto) 58.2 % (45.0-75.0) Lymphocytes (%) (Auto) 29.4 % (20.0-45.0) Monocytes (%) (Auto) 9.5 % (1.0-10.0) Eosinophils (%) (Auto) 1.9 % (0.0-3.0) Basophils (%) (Auto) 1.0 % (0.0-2.0) Sodium Level 141 MMOL/L (136-145) Potassium Level 4.1 MMOL/L (3.5-5.1) Chloride Level 104 MMOL/L (98-107) Carbon Dioxide Level 28 MMOL/L (21-32) Anion Gap 9 mmol/L (5-15) Blood Urea Nitrogen 18 mg/dL (7-18) Creatinine 0.9 MG/DL (0.55-1.30) Estimat Glomerular Filtration Rate > 60 mL/min (>60) Glucose Level 100 MG/DL (74-106) Hemoglobin A1c 6.1 % (4.3-6.0) H Calcium Level 9.0 MG/DL (8.5-10.1) Phosphorus Level 4.1 MG/DL (2.5-4.9) Magnesium Level 1.8 MG/DL (1.8-2.4) Triglycerides Level 51 MG/DL (30-150) Cholesterol Level 100 MG/DL (< 200) LDL Cholesterol 62 mg/dL (<100) HDL Cholesterol 28 MG/DL (40-60) L Cholesterol/HDL Ratio 3.6 (3.3-4.4) Amylase Level 55 U/L (25-115) Lipase 156 U/L (73-393) Thyroid Stimulating Hormone (TSH) 1.641 uiU/mL (0.358-3.740) Curtis Reyes MD Oct 28, 2020 16:22
--- NOTE | 2020-10-28 17:31 | Diagnostic Imaging Report ---
Indication: Increased right-sided weakness and numbness with blurred vision Technique: Grayscale and duplex images of the bilateral extra cranial carotid and vertebral arteries. Comparison: none Findings: Bilaterally, Mccarthy scale duplex images demonstrate atherosclerotic plaquing resulting in less than 50% diameter narrowing. Normal Doppler flow velocities and waveforms. Patent bilateral vertebral arteries, antegrade flow Impression: Less than 50% diameter stenosis bilaterally All stenosis was measured based on the NASCET criteria. Velocity criteria are extrapolated from diameter data as defined by the Society of radiologists in ultrasound consensus conference. Radiology 2003:229; 340-346
--- NOTE | 2020-10-28 17:41 | Diagnostic Imaging Report ---
Indication: Increased bilateral extremity weakness, numbness, blurred vision Technique: sagittal T1 fast spin echo, axial T1 FLAIR, axial T2 FLAIR, axial T2 FS PROPELLER, axial T2* GRE, axial diffusion weighted images. ADC and exponential ADC maps generated Comparison: Brain CT 10/27/2020 Findings: No abnormal areas of restricted diffusion to suggest acute infarction. No acute hemorrhage or edema. There is fairly extensive deep white matter high T2 signal, both confluent and punctate, likely chronic microvascular ischemic change. Tiny old lacunar infarct is seen in the left parietal deep white matter. No mass effect nor midline shift. There is age-related enlargement of the ventricles and extra axial CSF spaces. The vascular flow voids are preserved.. Visualized orbits and sinuses are unremarkable. Impression: Chronic and age-related changes, as described Negative for acute intracranial bleed, mass effect, or infarct
--- NOTE | 2020-10-28 17:59 | Consultation ---
DATE OF CONSULTATION: 10/28/2020 CARDIOLOGY CONSULTATION CONSULTING PHYSICIAN: Curtis Reyes MD REFERRING PHYSICIAN: Brittany Puentes MD REASON FOR CONSULTATION: Management of hypertension and abnormal EKG and possible cardiogenic source of stroke. HISTORY OF PRESENT ILLNESS: Patient is a 60-year-old lady with history of hypertension, hyperlipidemia, prior stroke, prediabetes who presented with increased bilateral upper extremity weakness and numbness and swelling. Patient also had blurring of the vision. Patient was newly diagnosed with stroke last week when she was at [facility]. She received aspirin and Crestor. Patient also has history of rheumatoid arthritis and is on methotrexate. She works as a caregiver. CT of the head revealed multiple old infarcts and negative for acute intracranial bleed or mass effect. Cardiology consultation was obtained for further evaluation. REVIEW OF SYSTEMS: Negative other than what was mentioned in the history of present illness. PAST MEDICAL HISTORY: As mentioned above. PAST SURGICAL HISTORY: Thyroidectomy. FAMILY HISTORY: Includes heart attacks. SOCIAL HISTORY: Lives at home. Has several grown children. Does not smoke or drink alcohol. PHYSICAL EXAMINATION: VITAL SIGNS: Show blood pressure of 118/67, pulse 70, respirations 18, temperature 97.7. HEAD AND NECK: Showed no JVD. LUNGS: Coarse rhonchi. CARDIOVASCULAR: Shows regular S1 and S2 with no gallop. ABDOMEN: Soft. EXTREMITIES: No pitting edema. LABORATORY AND DIAGNOSTIC DATA: EKG shows sinus rhythm with old inferior wall CO. Echocardiogram, ejection fraction 65%. Laboratories show white count of 7.8, hemoglobin 10.8, hematocrit 34.6, and platelet count of 319. Sodium 141, potassium 4.1, BUN of 18, creatinine 0.9, and glucose of 100. First troponin is negative. INR is 1.1. ASSESSMENT AND PLAN: 1. Hypertension. Patient is on Aldactone 100 mg daily and Coreg 12.5 mg b.i.d. that will be continued. 2. Status post multiple strokes, etiology not clear. Currently in sinus rhythm. The echocardiogram showed EF of 65%. 3. Headache. Head MRI of the brain and carotid duplex is pending. Thank you very much for allowing me to participate in the care of this patient. Please do not hesitate to contact me if you have any questions regarding my evaluation. Curtis Reyes M.D. DR: BECKA JOB#: [id number] CC:
--- NOTE | 2020-10-28 19:46 | NUR ---
NURSE HAND-OFF REPORT: Important Events on Shift:stable Patient Status: full code Diet: cadriac Pending Orders: [] Pending Results/Labs:[] Pending MD notification:[] Latest Vital Signs: Temperature 97.8 , Pulse 72 , B/P 117 /67 , Respiratory Rate 17 , O2 SAT 100 , Room Air, O2 Flow Rate . Vital Sign Comment: satble EKG Rhythm: Sinus Rhythm Rhythm change?: N MD Notified?: - MD Response: Latest Carmichael Fall Score: 15 Fall Risk: Low Risk Safety Measures: Call light Within Reach, Bed Alarm Zone 1, Side Rails Side Rails x2, Bed position Low and Locked. Fall Precautions: Patient Fall Education Report given to david villalobos
[2020-10-28 20:00] VITALS: BP 113/67
[2020-10-28] MEDS: Albuterol/Ipratropium 3ml neb INH PRN (20:46)
[2020-10-29] VITALS: BP 117/67
[2020-10-29 04:00] VITALS: BP 132/59
[2020-10-29 08:00] VITALS: BP 111/62
[2020-10-29] MEDS: Spironolactone 25mg tab ORAL SCH (08:15)
[2020-10-29] MEDS: Carvedilol 12.5mg tab ORAL SCH (08:15)
[2020-10-29] MEDS: Aspirin Baby 81mg ORAL SCH (08:15)
[2020-10-29 09:50] LABS: ALANINE AMINOTRANSFERASE 31 U/L (12-78); ALBUMIN 3.3 G/DL (3.4-5.0); ALBUMIN/GLOBULIN RATIO 0.8 (1.0-2.7); ALKALINE PHOSPHATASE 94 U/L (46-116); ANION GAP 7 mmol/L (5-15); ASPARTATE AMINO TRANSFERASE 18 U/L (15-37); BILIRUBIN,TOTAL 0.2 MG/DL (0.2-1.0); BLOOD UREA NITROGEN 19 mg/dL (7-18); CALCIUM 8.9 MG/DL (8.5-10.1); CARBON DIOXIDE 30 MMOL/L (21-32); CHLORIDE 103 MMOL/L (98-107); PHOSPHORUS 3.6 MG/DL (2.5-4.9); SODIUM 140 MMOL/L (136-145)
[2020-10-29 09:53] LABS: BASOPHILS % (AUTO) 1.1 % (0.0-2.0); EOSINOPHILS % (AUTO) 2.9 % (0.0-3.0); HEMATOCRIT 36.5 % (37.0-47.0); HEMOGLOBIN 11.1 G/DL (12.0-16.0); LYMPHOCYTES % (AUTO) 30.6 % (20.0-45.0); MEAN CORPUSCULAR VOLUME 83 FL (80-99); MONOCYTES % (AUTO) 7.7 % (1.0-10.0); NEUTROPHILS % (AUTO) 57.7 % (45.0-75.0); PLATELET COUNT 321 K/UL (150-450); RED BLOOD COUNT 4.39 M/UL (4.20-5.40); RED CELL DISTRIBUTION WIDTH 15.1 % (11.6-14.8); WHITE BLOOD COUNT 8.2 K/UL (4.8-10.8)
[2020-10-29 11:55] VITALS: BP 102/60
--- NOTE | 2020-10-29 11:57 | Surgery Progress Note ---
Surgery Progress Note Subjective Additional Comments states she feels better but has headache no n/v/f/c mri noted does not eat much as does not like the food Objective Last 24 Hour Vital Signs Date Time Temp Pulse Resp B/P (MAP) Pulse Ox O2 Delivery O2 Flow Rate FiO2 10/29/20 11:55 98.0 62 18 102/60 (74) 99 10/29/20 09:00 Room Air 10/29/20 08:15 64 111/62 10/29/20 08:00 97.9 64 18 111/62 (78) 99 10/29/20 07:44 67 10/29/20 04:00 96.5 64 20 132/59 (83) 100 10/29/20 04:00 65 10/29/20 00:00 98.0 74 20 117/67 (84) 100 10/28/20 21:53 70 113/67 10/28/20 21:00 Room Air 10/28/20 20:46 74 18 97 Nasal Cannula 2.0 28 10/28/20 20:46 68 20 99 2.0 28 74 18 97 10/28/20 20:00 97.8 70 20 113/67 (82) 98 10/28/20 20:00 66 10/28/20 16:00 72 10/28/20 16:00 97.8 72 17 117/67 (84) 100 10/28/20 12:00 97.7 70 17 118/67 (84) 100 I&O Intake and Output 10/28/20 10/29/20 19:00 07:00 Intake Total 500 ml 300 ml Balance 500 ml 300 ml Intake Oral 500 ml 300 ml # Voids 3 6 Cardiovascular: RSR Respiratory: decreased breath sounds Abdomen: soft, flat, non-tender, present bowel sounds, non-distended Extremities: no tenderness Laboratory Tests Test 10/29/20 08:10 White Blood Count 8.2 K/UL (4.8-10.8) Red Blood Count 4.39 M/UL (4.20-5.40) Hemoglobin 11.1 G/DL (12.0-16.0) L Hematocrit 36.5 % (37.0-47.0) L Mean Corpuscular Volume 83 FL (80-99) Mean Corpuscular Hemoglobin 25.2 PG (27.0-31.0) L Mean Corpuscular Hemoglobin Concent 30.3 G/DL (32.0-36.0) L Red Cell Distribution Width 15.1 % (11.6-14.8) H Platelet Count 321 K/UL (150-450) Mean Platelet Volume 8.7 FL (6.5-10.1) Neutrophils (%) (Auto) 57.7 % (45.0-75.0) Lymphocytes (%) (Auto) 30.6 % (20.0-45.0) Monocytes (%) (Auto) 7.7 % (1.0-10.0) Eosinophils (%) (Auto) 2.9 % (0.0-3.0) Basophils (%) (Auto) 1.1 % (0.0-2.0) Sodium Level 140 MMOL/L (136-145) Potassium Level 4.0 MMOL/L (3.5-5.1) Chloride Level 103 MMOL/L (98-107) Carbon Dioxide Level 30 MMOL/L (21-32) Anion Gap 7 mmol/L (5-15) Blood Urea Nitrogen 19 mg/dL (7-18) H Creatinine 1.0 MG/DL (0.55-1.30) Estimat Glomerular Filtration Rate > 60 mL/min (>60) Glucose Level 109 MG/DL (74-106) H Calcium Level 8.9 MG/DL (8.5-10.1) Phosphorus Level 3.6 MG/DL (2.5-4.9) Magnesium Level 1.6 MG/DL (1.8-2.4) L Total Bilirubin 0.2 MG/DL (0.2-1.0) Aspartate Amino Transf (AST/SGOT) 18 U/L (15-37) Alanine Aminotransferase (ALT/SGPT) 31 U/L (12-78) Alkaline Phosphatase 94 U/L (46-116) Troponin I 0.005 ng/mL (0.000-0.056) Pro-B-Type Natriuretic Peptide 27 pg/mL (0-125) Total Protein 7.3 G/DL (6.4-8.2) Albumin 3.3 G/DL (3.4-5.0) L Globulin 4.0 g/dL Albumin/Globulin Ratio 0.8 (1.0-2.7) L Plan Problems: (1) TIA (transient ischemic attack) (2) Headache Assessment & Plan: as per neuro (3) Multiple lacunar infarcts (4) Elevated alkaline phosphatase level Assessment & Plan: Possible TIA not down LOC no pending neuro input MRI CT noted alkaline phosphatase elevation unlikely liver related unlikely from being down no acute intervention necessary at this time okay for diet okay for activity as tolerated once gait ensured. PT OT trend labs we will follow the recommendations hold on further imaging unlikely biliary thank you labs improved diet as tolerated neuro input resolved MRI noted No abnormal areas of restricted diffusion to suggest acute infarction. No acute hemorrhage or edema. There is fairly extensive deep white matter high T2 signal, both confluent and punctate, likely chronic microvascular ischemic change. Tiny old lacunar infarct is seen in the left parietal deep white matter. No mass effect nor midline shift. There is age-related enlargement of the ventricles and extra axial CSF spaces. The vascular flow voids are preserved.. Visualized orbits and sinuses are unremarkable. Josafat Chu Oct 29, 2020 11:57
[2020-10-29] MEDS: Albuterol/Ipratropium 3ml neb INH PRN ×2 (12:10→18:10)
--- NOTE | 2020-10-29 12:56 | Neurology Progress Note ---
Interim History Interim History ROS Limited/Unobtainable: No Events: reviewed results, no acute events Objective Physical Exam Last Vital Signs Date Time Temp Pulse Resp B/P (MAP) Pulse Ox O2 Delivery O2 Flow Rate FiO2 10/29/20 11:55 98.0 62 18 102/60 (74) 99 10/29/20 09:00 Room Air 10/28/20 20:46 2.0 28 Laboratory Tests Test 10/29/20 08:10 White Blood Count 8.2 K/UL (4.8-10.8) Red Blood Count 4.39 M/UL (4.20-5.40) Hemoglobin 11.1 G/DL (12.0-16.0) L Hematocrit 36.5 % (37.0-47.0) L Mean Corpuscular Volume 83 FL (80-99) Mean Corpuscular Hemoglobin 25.2 PG (27.0-31.0) L Mean Corpuscular Hemoglobin Concent 30.3 G/DL (32.0-36.0) L Red Cell Distribution Width 15.1 % (11.6-14.8) H Platelet Count 321 K/UL (150-450) Mean Platelet Volume 8.7 FL (6.5-10.1) Neutrophils (%) (Auto) 57.7 % (45.0-75.0) Lymphocytes (%) (Auto) 30.6 % (20.0-45.0) Monocytes (%) (Auto) 7.7 % (1.0-10.0) Eosinophils (%) (Auto) 2.9 % (0.0-3.0) Basophils (%) (Auto) 1.1 % (0.0-2.0) Sodium Level 140 MMOL/L (136-145) Potassium Level 4.0 MMOL/L (3.5-5.1) Chloride Level 103 MMOL/L (98-107) Carbon Dioxide Level 30 MMOL/L (21-32) Anion Gap 7 mmol/L (5-15) Blood Urea Nitrogen 19 mg/dL (7-18) H Creatinine 1.0 MG/DL (0.55-1.30) Estimat Glomerular Filtration Rate > 60 mL/min (>60) Glucose Level 109 MG/DL (74-106) H Calcium Level 8.9 MG/DL (8.5-10.1) Phosphorus Level 3.6 MG/DL (2.5-4.9) Magnesium Level 1.6 MG/DL (1.8-2.4) L Total Bilirubin 0.2 MG/DL (0.2-1.0) Aspartate Amino Transf (AST/SGOT) 18 U/L (15-37) Alanine Aminotransferase (ALT/SGPT) 31 U/L (12-78) Alkaline Phosphatase 94 U/L (46-116) Troponin I 0.005 ng/mL (0.000-0.056) Pro-B-Type Natriuretic Peptide 27 pg/mL (0-125) Total Protein 7.3 G/DL (6.4-8.2) Albumin 3.3 G/DL (3.4-5.0) L Globulin 4.0 g/dL Albumin/Globulin Ratio 0.8 (1.0-2.7) L Neurologic Exam Objective Physical Exam General: Resting in bed. Awake, Alert and Oriented x4 Neuro: has insight to situation, comprehension intact, language parameters intact. Cranial nerves II-XII are tested. PERRLA, no nystagmus with gaze. No facial asymmetry no facial droop. Tongue is midline Hearing intact. Motor: No involuntary movement Right upper extremity strength 3/5 Left upper extremity strength 4/5, Bilateral lower extremity strength 4/5 Gait not tested at this time. Corrdination intact and Sensation intact to light touch and pinprick throughout and equal bilaterally in all extremities. Coordination normal. Impression/Recommendations Diagnostic Impression IMAGING: Reviewed CT Head Multiple old infarcts, Negative for acute intracranial bleed or mass effect. CT A neck demonstrates a minimal stenosis of the right common carotid origin measuring 24% by NASCET criteria. MRI Brain: Acute to subacute ischemic lacunar type infarct in the posterior limb of the left internal capsule. Chronic left parietal cortical and deep white matter infarcts, Chronic bilateral basal ganglia and thalamic and pontine lacunar type infarcts, Mild to moderate chronic microvascular ischemic disease and diffuse volume loss Assessment and Rec's: 1. History of Stroke --> have reviewed records from [facility] October: S/P Lacunar infarct in posterior limb of left internal capsule, Approx 5mm lacunar infarct at anterior limb of left internal capsule --> continue statin and asa and start plavix 75mg po daily --> cleared from neuro standpoint for discharge and follow up outpatient Neurologist. 2. Hypertension --> continue htn meds 3. Pre diabetes 4. RA 5. Carpal Tunnel Syndrome Thank You for allowing us to participate in patient's care, plan of care was discussed with Dr. Dexter Carroll. -- Yessi Mahmood NP Oct 29, 2020 12:56
--- NOTE | 2020-10-29 14:56 | NUR ---
*-*DISCHARGE PLAN*-* PATIENT HAS BEEN ACCEPTED AND WILL BE DISCHARGED BACK TO: [facility] P: [phone] FOR NURSE TO NURSE REPORT ROOM# 6.[facility] TRANSP[facility] SET FOR 4PM S/W [facility] [id number]. S/W PATIENT SON, SULEIMAN, WHO IS IN AGREEMENT WITH DISCHARGE PLAN.
[2020-10-29 16:00] VITALS: BP 102/59
--- NOTE | 2020-10-29 16:40 | Cardiac Electrophysiology PN ---
Assessment/Plan Assessment/Plan 1. Hypertension. Patient is on Aldactone 100 mg daily and Coreg 12.5 mg b.i.d. 2. Status post multiple strokes, etiology not clear. Currently in sinus rhythm. The echocardiogram showed EF of 65%. 3. Headache. MRI of the brain results pending. FU Neuro 4 RA on Methotrexate DW RN Subjective Subjective No CP or OB. Just had MRI of the brain Objective Last 24 Hour Vital Signs Date Time Temp Pulse Resp B/P (MAP) Pulse Ox O2 Delivery O2 Flow Rate FiO2 10/29/20 11:55 98.0 62 18 102/60 (74) 99 10/29/20 11:40 76 10/29/20 09:00 Room Air 10/29/20 08:15 64 111/62 10/29/20 08:00 97.9 64 18 111/62 (78) 99 10/29/20 07:44 67 10/29/20 04:00 96.5 64 20 132/59 (83) 100 10/29/20 04:00 65 10/29/20 00:00 98.0 74 20 117/67 (84) 100 10/28/20 21:53 70 113/67 10/28/20 21:00 Room Air 10/28/20 20:46 74 18 97 Nasal Cannula 2.0 28 10/28/20 20:46 68 20 99 2.0 28 74 18 97 10/28/20 20:00 97.8 70 20 113/67 (82) 98 10/28/20 20:00 66 Intake and Output 10/28/20 10/29/20 19:00 07:00 Intake Total 500 ml 300 ml Balance 500 ml 300 ml Intake Oral 500 ml 300 ml # Voids 3 6 Laboratory Tests Test 10/29/20 08:10 White Blood Count 8.2 K/UL (4.8-10.8) Red Blood Count 4.39 M/UL (4.20-5.40) Hemoglobin 11.1 G/DL (12.0-16.0) L Hematocrit 36.5 % (37.0-47.0) L Mean Corpuscular Volume 83 FL (80-99) Mean Corpuscular Hemoglobin 25.2 PG (27.0-31.0) L Mean Corpuscular Hemoglobin Concent 30.3 G/DL (32.0-36.0) L Red Cell Distribution Width 15.1 % (11.6-14.8) H Platelet Count 321 K/UL (150-450) Mean Platelet Volume 8.7 FL (6.5-10.1) Neutrophils (%) (Auto) 57.7 % (45.0-75.0) Lymphocytes (%) (Auto) 30.6 % (20.0-45.0) Monocytes (%) (Auto) 7.7 % (1.0-10.0) Eosinophils (%) (Auto) 2.9 % (0.0-3.0) Basophils (%) (Auto) 1.1 % (0.0-2.0) Sodium Level 140 MMOL/L (136-145) Potassium Level 4.0 MMOL/L (3.5-5.1) Chloride Level 103 MMOL/L (98-107) Carbon Dioxide Level 30 MMOL/L (21-32) Anion Gap 7 mmol/L (5-15) Blood Urea Nitrogen 19 mg/dL (7-18) H Creatinine 1.0 MG/DL (0.55-1.30) Estimat Glomerular Filtration Rate > 60 mL/min (>60) Glucose Level 109 MG/DL (74-106) H Calcium Level 8.9 MG/DL (8.5-10.1) Phosphorus Level 3.6 MG/DL (2.5-4.9) Magnesium Level 1.6 MG/DL (1.8-2.4) L Total Bilirubin 0.2 MG/DL (0.2-1.0) Aspartate Amino Transf (AST/SGOT) 18 U/L (15-37) Alanine Aminotransferase (ALT/SGPT) 31 U/L (12-78) Alkaline Phosphatase 94 U/L (46-116) Troponin I 0.005 ng/mL (0.000-0.056) Pro-B-Type Natriuretic Peptide 27 pg/mL (0-125) Total Protein 7.3 G/DL (6.4-8.2) Albumin 3.3 G/DL (3.4-5.0) L Globulin 4.0 g/dL Albumin/Globulin Ratio 0.8 (1.0-2.7) L Objective HEAD AND NECK: Showed no JVD. LUNGS: Coarse rhonchi. CARDIOVASCULAR: Shows regular S1 and S2 with no gallop. ABDOMEN: Soft. EXTREMITIES: No pitting edema. Curtis Reyes MD Oct 29, 2020 16:39
--- NOTE | 2020-10-29 18:36 | Internal Med Progress Note ---
Subjective Physician Name Brittany Puentes Attending Physician Brittany Puentes M.D. Current Medications Medications (Trade) Dose Ordered Sig/Casey Route PRN Reason Start Time Stop Time Status Last Admin Dose Admin Acetaminophen (Tylenol) 650 mg Q6H PRN ORAL For Headache 10/28/20 21:00 11/27/20 20:59 10/28/20 21:01 Albuterol/ Ipratropium (Albuterol/ Ipratropium) 3 ml Q4HRT PRN INH Shortness of Breath 10/28/20 14:15 11/02/20 13:29 10/29/20 18:10 Aspirin (ASA) 81 mg DAILY ORAL 10/28/20 09:00 12/12/20 08:59 10/29/20 08:15 Carvedilol (Coreg) 12.5 mg EVERY 12 HOURS ORAL 10/29/20 21:00 11/26/20 20:59 Chlorhexidine Gluconate (Darlene-Hex 2%) 1 applic PRN PRN TOPIC Radiology Procedure 10/27/20 16:15 01/25/21 16:14 Clopidogrel Bisulfate (Plavix) 75 mg DAILY ORAL 10/30/20 09:00 11/29/20 08:59 Folic Acid (Folate) 1 mg DAILY ORAL 10/28/20 09:00 11/27/20 08:59 10/29/20 08:15 Methotrexate (metHOTREXate) 7.5 mg QWEEK ORAL 10/29/20 12:00 11/09/20 11:59 10/29/20 11:14 Pantoprazole (Protonix) 40 mg DAILY ORAL 10/28/20 09:00 11/27/20 08:59 10/29/20 08:14 Patient Own Medication (Patient's Own Med) 1 ea QHS ORAL 10/28/20 21:00 11/27/20 20:59 10/28/20 21:53 Spironolactone (Aldactone) 100 mg DAILY ORAL 10/28/20 09:00 11/27/20 08:59 10/28/20 08:26 Allergies: Coded Allergies: No Known Allergies (Unverified , 10/27/20) Objective Last Vital Signs Date Time Temp Pulse Resp B/P (MAP) Pulse Ox O2 Delivery O2 Flow Rate FiO2 10/29/20 18:10 89 18 100 2.0 28 84 18 100 10/29/20 16:00 98.3 102/59 (73) 10/29/20 09:00 Room Air Laboratory Tests Test 10/29/20 08:10 White Blood Count 8.2 K/UL (4.8-10.8) Red Blood Count 4.39 M/UL (4.20-5.40) Hemoglobin 11.1 G/DL (12.0-16.0) L Hematocrit 36.5 % (37.0-47.0) L Mean Corpuscular Volume 83 FL (80-99) Mean Corpuscular Hemoglobin 25.2 PG (27.0-31.0) L Mean Corpuscular Hemoglobin Concent 30.3 G/DL (32.0-36.0) L Red Cell Distribution Width 15.1 % (11.6-14.8) H Platelet Count 321 K/UL (150-450) Mean Platelet Volume 8.7 FL (6.5-10.1) Neutrophils (%) (Auto) 57.7 % (45.0-75.0) Lymphocytes (%) (Auto) 30.6 % (20.0-45.0) Monocytes (%) (Auto) 7.7 % (1.0-10.0) Eosinophils (%) (Auto) 2.9 % (0.0-3.0) Basophils (%) (Auto) 1.1 % (0.0-2.0) Sodium Level 140 MMOL/L (136-145) Potassium Level 4.0 MMOL/L (3.5-5.1) Chloride Level 103 MMOL/L (98-107) Carbon Dioxide Level 30 MMOL/L (21-32) Anion Gap 7 mmol/L (5-15) Blood Urea Nitrogen 19 mg/dL (7-18) H Creatinine 1.0 MG/DL (0.55-1.30) Estimat Glomerular Filtration Rate > 60 mL/min (>60) Glucose Level 109 MG/DL (74-106) H Calcium Level 8.9 MG/DL (8.5-10.1) Phosphorus Level 3.6 MG/DL (2.5-4.9) Magnesium Level 1.6 MG/DL (1.8-2.4) L Total Bilirubin 0.2 MG/DL (0.2-1.0) Aspartate Amino Transf (AST/SGOT) 18 U/L (15-37) Alanine Aminotransferase (ALT/SGPT) 31 U/L (12-78) Alkaline Phosphatase 94 U/L (46-116) Troponin I 0.005 ng/mL (0.000-0.056) Pro-B-Type Natriuretic Peptide 27 pg/mL (0-125) Total Protein 7.3 G/DL (6.4-8.2) Albumin 3.3 G/DL (3.4-5.0) L Globulin 4.0 g/dL Albumin/Globulin Ratio 0.8 (1.0-2.7) L Intake and Output 10/28/20 10/29/20 19:00 07:00 Intake Total 500 ml 300 ml Balance 500 ml 300 ml Intake Oral 500 ml 300 ml # Voids 3 6 Assessment/Plan Assessment/Plan # Recent Stroke #HLD # hypertension #pre diabetes # RA #Carpel Tunnel - admit to tele - brain MRI - neuro eval - echo - carotid US - asa - statin - PT - monitor labs Brittany Puentes M.D. Oct 29, 2020 18:36
--- NOTE | 2020-10-29 18:45 | NUR ---
NURSE NOTES: patient was discharge to home per dr garner order. patient refused to be placed in [facility] [place]. Per patient she will be fine going to her sisters house and her sister will take care of her. Dr Glen Sanchez was called and information of patients pharmacy was given regarding plavix. IV line removed and bleeding was stopped, quality assurance monitor body was endorsed to [place]. Education and instrcutions regarding patients medications were discussed and patient verbalized understanding.Picked up by son via a private vehicle.
[2020-10-29] MEDS ORDERED: Carvedilol 25mg Tab ORAL SCH (21:00)
--- NOTE | 2020-11-02 10:22 | Discharge Summary ---
Discharge Summary Discharge Summary _ Date of admission: 10/27/2020 Date of discharge: 10/29/[address] Puentse History of Present Illness and Brief Hospital Course Ms. Edwin Pérez is a 60-year-old female with past medical history of hypertension who presented to ED for evaluation of worsening right-sided weakness and numbness with associated blurry vision. Of note, she was newly diagnosed with stroke 1 week prior to presentation and was seen at [facility]. CT of head revealed multiple old infarcts, and was negative for acute intracranial bleed or mass-effect. The records from [facility] on 10/19/2020 revealed a lacunar infarct in the posterior limb of left internal capsule, and approximately 5 mm lacunar infarct at anterior limb of the left internal capsule. Patient was admitted to the hospital for further management. She was continued on statin and aspirin. She was started on Plavix. Brain MRI revealed chronic and age-related changes. It was negative for acute intracranial bleed, mass-effect, or infarct. Carotid duplex reviewed less than 50% diameter stenosis bilaterally. Patient was medically stable for discharge and was discharged to [facility] on 10/29/2020. Consultants: Cardiology Dr. Reeys Neurology Yessi Mahmood, [facility] Surgery Dr. Chu Discharge Condition Stable Final diagnoses Hypertension s/p multiple strokes Headache History of rheumatoid arthritis Hyperlipidemia Prediabetes Carpal tunnel syndrome I have been assigned to dictate discharge summary for this account. I was not involved in the patient's management Ren Santos Nov 02, 2020 10:22
== END 2020-10-29 18:45 | disposition home or self-care (01) | DRG 45 ==
LOC: EMR 09:50 → 2E 12:35 → EDBEDREQ 13:33 → 2E 14:43
DX: I63.81 Other cerebral infarction due to occlusion or stenosis of small artery (principal); Z86.73 Personal history of transient ischemic attack (TIA), and cerebral infarction without residual deficits; E78.5 Hyperlipidemia, unspecified; R53.1 Weakness; I10 Essential (primary) hypertension; M06.9 Rheumatoid arthritis, unspecified; Z79.82 Long term (current) use of aspirin; R73.03 Prediabetes; R51.9 Headache, unspecified; G56.00 Carpal tunnel syndrome, unspecified upper limb
CPT/HCPCS: 36415; 70450; 70551; 80048; 80053; 80061; 82150; 82962; 83036; 83690; 83735; 83880; 84100; 84443; 84484; 85025; 85610; 85730; 93005; 93306; 93880; 94640; 99285; J7620